=== PATIENT | male | born 1980 | race Caucasian/White ===

== ENCOUNTER 2018-01-30 19:44 | Emergency (ER) | payer OTHER ==
[~2018-01-30] VITALS: Ht 180.3 cm; Wt 101.2 kg
[~2018-01-30 19:44] MED LIST: IBUP-974 PO
--- NOTE | 2018-01-30 19:52 | NUR ---
PT AMBULATED TO CHAIR A. RN ASSESSING PATIENT
[2018-01-30 19:54] VITALS: BP 133/87
--- NOTE | 2018-01-30 20:05 | NUR ---
Dr. Jessica evaluating patient.
--- NOTE | 2018-01-30 20:08 | NUR ---
37Y/M PT. PRESESNT TO ED WITH C/O PUNCTURE WOUND LT.FOOT. PT. STEPPED ON NAIL X 1 HR AGO. PT. STATES WANT TETANUS SHOT. NO MED HX. AAO X4, AMBULATORY WITH STDEAY GAIT. LT. FOOT PUNCTURE WOUND, NO BLEEDING. NO PAIN AT THIS TIME. VSS, ER MADE AWARE OF PT. STATUS.
--- NOTE | 2018-01-30 20:45 | NUR ---
PT RETURN FROM RAD
--- NOTE | 2018-01-30 20:45 | NUR ---
Tracy bobo in [facility] - 01/30/18 at 2045 by TOM PT RETURN FROM CHAIR A
--- NOTE | 2018-01-30 20:49 | NUR ---
PT. REFUSED XRAY, ER MADE AWARE OF PT. STATUS.
[2018-01-30 21:30] VITALS: BP 133/87
--- NOTE | 2018-01-30 21:30 | NUR ---
Patient discharged with v/s stable. Written and verbal after care instructions given and explained. Patient alert, oriented and verbalized understanding of instructions. Ambulatory with steady gait. All questions addressed prior to discharge. ID band removed. Patient advised to follow up with PMD. Rx of CIPRO 500 MG given. Patient educated on indication of medication including possible reaction and side effects. Opportunity to ask questions provided and answered.
== END 2018-01-30 21:30 | disposition home or self-care (01) ==
LOC: MED 19:44
DX: S91.332A Puncture wound without foreign body, left foot, initial encounter (principal); Z79.899 Other long term (current) drug therapy; W22.8XXA Striking against or struck by other objects, initial encounter; Y93.89 Activity, other specified; Y92.89 Other specified places as the place of occurrence of the external cause; Y99.8 Other external cause status
CPT/HCPCS: 90471; 90715; 99283

== ENCOUNTER 2018-10-28 11:56 | Emergency (ER) | payer OTHER ==
[~2018-10-28] VITALS: Ht 182.9 cm; Wt 91.6 kg
[2018-10-28 12:00] VITALS: BP 141/91
--- NOTE | 2018-10-28 12:05 | NUR ---
PT AMBULATES TO BED 6
--- NOTE | 2018-10-28 12:15 | NUR ---
PATIENT PRESENTS TO ED WITH c/o 8/10 bl lower back pain radiating to bl legs x 3 days after injury at work. Patient sts pain occurred after lifting heavy metal items. Patient also reports of intermittent dizziness. Patient with steady gait. VSS; PATIENT POSITIONED FOR COMFORT; HOB ELEVATED; BEDRAILS UP X2; BED DOWN. ER MD MADE AWARE OF PT STATUS.
--- NOTE | 2018-10-28 12:55 | NUR ---
Patient being evaluated by physician at bedside.
[2018-10-28] MEDS ORDERED: KETOROLAC 60 MG/2 ML VIAL IM ONE (13:05)
[2018-10-28] MEDS ORDERED: MORPHINE SULFATE 2 MG/ML SYR IM ONE (13:05)
[2018-10-28] MEDS ORDERED: LORazepam 2 MG/ML VIAL IM ONE (13:05)
[2018-10-28] MEDS ORDERED: MORPHINE SULFATE 4 MG/ML SYR ONE (13:20)
[2018-10-28 14:27] VITALS: BP 132/80
--- NOTE | 2018-10-28 14:27 | NUR ---
Patient discharged with v/s stable. Written and verbal after care instructions given and explained. Patient alert, oriented and verbalized understanding of instructions. Ambulatory with steady gait. All questions addressed prior to discharge. ID band removed. Patient advised to follow up with PMD. Rx of Voltaren Xl 100mg and Tramadol 50mg given. Patient educated on indication of medication including possible reaction and side effects. Opportunity to ask questions provided and answered.
== END 2018-10-28 14:22 | disposition home or self-care (01) ==
LOC: MED 11:56
DX: S33.5XXA Sprain of ligaments of lumbar spine, initial encounter (principal); Z79.899 Other long term (current) drug therapy; X58.XXXA Exposure to other specified factors, initial encounter; Y93.89 Activity, other specified; Y92.89 Other specified places as the place of occurrence of the external cause; Y99.8 Other external cause status
CPT/HCPCS: 96372; 99283; J1885; J2060; J2270